=== PATIENT | male | born 1980 | race African-American/Black ===

== ENCOUNTER 2017-07-13 18:46 | Emergency (ER) | payer SELFPAY | END 2017-07-13 19:02 | disposition home or self-care (01) | LOC: ER 18:46 | DX: F15.10 Other stimulant abuse, uncomplicated (principal) | CPT/HCPCS: 99283 ==

== ENCOUNTER 2019-04-22 16:38 | Emergency (ER) | payer SELFPAY ==
[~2019-04-22] VITALS: Ht 180.3 cm; Wt 86.3 kg
[2019-04-22 17:06] VITALS: BP 134/89
[2019-04-22] MEDS ORDERED: LIDOCAINE 1%/EPI 1:100,000 20 ML VIAL. SQ ONE (18:00)
--- NOTE | 2019-04-22 19:03 | PHYS DOC ---
Past Medical History Past Medical History: No Pertinent History (JOSE STANLEY APRN) Past Surgical History: No Surgical History (JOSE STANLEY APRN) Smoking Status: Current Every Day Smoker Alcohol Use: None Drug Use: Phencyclidine (JOSE STANLEY APRN) Attending Signature I have participated in the care of this patient and I have reviewed and agree with all pertinent clinical information above including history, exam, and recommendations. (RANGEL BYNUM MD) Adult General Chief Complaint Chief Complaint: ABSCESS HPI HPI Patient is a 39 year old AA male who presents to the ER with complaints of an a bscess on the right side of his penis and to his left buttock for the last 2 weeks. He states that pus has drained from both sites and that the two areas are very painful to touch. He denies any dysuria, hematuria, or abnormal penile discharge. 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 Pt denies any fever, body aches, fatigue, abdominal pain, nausea, vomiting, or diarrhea. (JOSE STANLEY APRN) Review of Systems Review of Systems All other systems were reviewed and found to be within normal limits, except as documented in this note. (JOSE STANLEY APRN) Current Medications Current Medications Current Medications Medications (Trade) Dose Ordered Sig/Joseph Start Time Stop Time Status Last Admin Dose Admin Lidocaine/ Epinephrine (LIDOCAINE 1%-EPI 1:100,000 Multi-Dose) 20 ml 1X ONCE 04/22/19 18:00 04/22/19 18:01 DC 04/22/19 18:07 20 ML (RANGEL BYNUM MD) Allergies Allergies Allergies Coded Allergies Type Severity Reaction Last Updated Verified No Known Drug Allergies 07/13/17 No (RANGEL BYNUM MD) Physical Exam Physical Exam Constitutional: Well developed, well nourished, no acute distress, non-toxic appearance. [] HENT: Normocephalic, atraumatic, bilateral external ears normal, nose normal. [] Eyes: PERRLA, EOMI, conjunctiva normal, no discharge. [] Neck: Normal range of motion, no stridor. [] Cardiovascular: Heart rate regular rhythm Lungs & Thorax: Respirations even and unlabored, no retractions, no respiratory distress Skin: Warm, dry; 0.5 cm granular area noted to right side of penis, minimal pus drainage, tender to palpation; 2 cm diameter erythemic area noted to center of left buttock with small amount of pus drainage consistent with abscess, tender to palpation Extremities: No cyanosis, ROM intact, no edema. [] Neurologic: Alert and oriented X 3, no focal deficits noted. [] Psychologic: Affect normal, judgement normal, mood normal. [] (JOSE STANLEY APRN) Current Patient Data Vital Signs Vital Signs Date Time Temp Pulse Resp B/P (MAP) Pulse Ox O2 Delivery O2 Flow Rate FiO2 04/22/19 17:06 98.2 94 18 134/89 (104) 97 Room Air 98.2 (RANGEL BYNUM MD) EKG EKG [] (JOSE STANLEY APRN) Radiology/Procedures Radiology/Procedures [] (JOSE STANLEY APRN) Course & Med Decision Making Course & Med Decision Making Pertinent Labs and Imaging studies reviewed. (See chart for details) [] (JOSE STANLEY APRN) Dragon Disclaimer Dragon Disclaimer This electronic medical record was generated, in whole or in part, using a voice recognition dictation system. (JOSE STANLEY APRN) Departure Departure Impression: Primary Impression: Abscess of right buttock Additional Impressions: Cellulitis of right buttock Abscess of shaft of penis Disposition: 01 HOME, SELF-CARE Condition: STABLE Referrals: NO PCP (PCP) Patient Instructions: Abscess, Care After Additional Instructions: Fill the prescription(s) and use as directed. You may take tylenol or ibuprofen as needed for pain. Leave the Dressing that was placed in the ER in place for the next 24 hours, then change the dressing twice daily and apply antibiotic ointment as needed. You may apply warm, moist packs to the area to help decrease discomfort. Follow up with your primary care doctor or return to the ER in 48 hours to have wound rechecked. Return to the ER sooner if your symptoms worsen. Scripts Sulfamethoxazole/Trimethoprim (BACTRIM DS TABLET) 1 Each Tablet 1 TAB PO BID for 10 Days, #20 TAB 0 Refills Prov: JOSE STANLEY APRN 2/19/20 Cephalexin (CEPHALEXIN) 500 Mg Capsule 1 CAP PO QID for 7 Days, #28 CAP 0 Refills Prov: JOSE STANLEY APRN 04/22/19 Incision and Drainage Incision and Drainage : Site: L buttock Blade Size: 11 I & D Procedure: betadine prep, gauze wick placed (1/4" iodoform gauze) Progress The L buttock abscess site was cleansed with betadine and 1% lido with epi was injected for anesthesia. An 11 blade scalpel was inserted into the site and a moderate amount of bloody and thick white drainage was expressed from the left buttock. The area was then packed with 1/4 inch iodoform gauze and covered with a 4x4 and tape. Pt tolerated procedure well, no complications, minimal blood loss. (JOSE STANLEY APRN) Problem Qualifiers JOSE STANLEY APRN Apr 22, 2019 19:03 RANGEL BYNUM MD Apr 23, 2019 00:14
[2019-04-22] MEDS ORDERED: SULF1TAB24 PO (19:06)
[2019-04-22] MEDS ORDERED: CEPH500C PO (19:06)
== END 2019-04-22 19:18 | disposition home or self-care (01) ==
LOC: ER 16:38
DX: L03.317 Cellulitis of buttock (principal); N48.21 Abscess of corpus cavernosum and penis; F17.200 Nicotine dependence, unspecified, uncomplicated
CPT/HCPCS: 10060; 99283; J3490

== ENCOUNTER 2019-07-09 00:19 | Emergency (ER) | payer SELFPAY ==
[~2019-07-09] VITALS: Ht 180.3 cm; Wt 81.0 kg
[~2019-07-09 00:19] MED LIST: CEPH500C PO; SULF1TAB24 PO
[2019-07-09 00:50] VITALS: BP 100/49
[2019-07-09] MEDS ORDERED: LIDOCAINE 2%/EPI 1:100,000 20 ML VIAL. IJ ONE (02:30)
[2019-07-09] MEDS ORDERED: DOXY100C14 PO (02:50)
[2019-07-09] MEDS ORDERED: HYDR-3164 PO (02:50)
--- NOTE | 2019-07-09 02:50 | PHYS DOC ---
Past Medical History Past Medical History: No Pertinent History Past Surgical History: No Surgical History Smoking Status: Current Every Day Smoker Alcohol Use: None Drug Use: Phencyclidine General Adult EDM: Chief Complaint: HIP PAIN HPI: HPI: Patient is a 39 year old male who presents with complaint of painful, swollen area on his left buttock. Patient states that it started a couple of weeks ago and was treated with a course of antibiotics and it had gotten a bit better but states that over the last 2 days, it has gotten a lot worse with increase in swelling. Patient denies any fever. He rates pain as severe. [] Review of Systems: Review of Systems: Constitutional: Denies fever or chills. [] Respiratory: Denies cough or shortness of breath. [] Cardiovascular: Denies chest pain or edema. [] Integument: Positive abscess. [] Neurologic: Denies headache, focal weakness or sensory changes. [] Heart Score: Risk Factors: Risk Factors: DM, Current or recent (<one month) smoker, HTN, HLP, family history of CAD, obesity. Risk Scores: Score 0 - 3: 2.5% MACE over next 6 weeks - Discharge Home Score 4 - 6: 20.3% MACE over next 6 weeks - Admit for Clinical Observation Score 7 - 10: 72.7% MACE over next 6 weeks - Early Invasive Strategies Current Medications: Current Medications Medications (Trade) Dose Ordered Sig/Joseph Start Time Stop Time Status Last Admin Dose Admin Acetaminophen/ Hydrocodone Bitart (Lortab 7.5/325) 1 tab 1X ONCE 07/09/19 03:00 07/09/19 03:01 07/09/19 02:27 1 TAB Cefazolin Sodium (Ancef Im) 1 gm 1X ONCE 07/09/19 03:00 07/09/19 03:01 07/09/19 02:27 1 GM Lidocaine/ Epinephrine (LIDOCAINE 2%-EPI 1:100,000 multi-dose) 20 ml 1X ONCE 07/09/19 02:30 07/09/19 02:31 DC 07/09/19 01:59 20 ML Allergies: Allergies: Allergies Coded Allergies Type Severity Reaction Last Updated Verified No Known Drug Allergies 07/13/17 No Physical Exam: PE: Constitutional: Well developed, well nourished, no acute distress, non-toxic appearance. [] Cardiovascular: Regular rate and rhythm [] Lungs & Thorax: Bilateral breath sounds clear to auscultation [] Skin: Left buttock demonstrates a 4 cm raised, indurated, erythematous, warm and tender lesion with central fluctuance, consistent with abscess. [] Neurologic: Alert and oriented X 3, no focal deficits noted. [] Current Patient Data: Vital Signs: Vital Signs Date Time Temp Pulse Resp B/P (MAP) Pulse Ox O2 Delivery O2 Flow Rate FiO2 07/09/19 02:27 Room Air 07/09/19 00:50 98.4 95 18 100/49 (66) 95 98.4 EKG: EKG: [] Radiology/Procedures: Radiology/Procedures: [] Course & Med Decision Making: Course & Med Decision Making Pertinent Labs and Imaging studies reviewed. (See chart for details) An incision and drainage of abscess was performed utilizing sterile procedure. Area was cleansed with iodine prep. Abscess then anesthetized with 2% lidocaine with epinephrine after which an 11 blade scalpel was utilized to incise the abscess in crisscross pattern. Loculations were broken up with tissue forceps. A moderate amount of purulent drainage was noted from the wound. Wound then packed with 1/2 inch iodoform gauze. Patient tolerated procedure well. [employer] Disclaimer: [employer] Disclaimer: This electronic medical record was generated, in whole or in part, using a voice recognition dictation system. Departure Departure Impression: Primary Impression: Abscess of right buttock Disposition: 01 HOME, SELF-CARE Condition: STABLE Referrals: NO PCP (PCP) Patient Instructions: Abscess Scripts Hydrocodone/Apap 5-325 (NORCO 5-325 TABLET) 1 Each Tablet 1-2 EACH PO PRN Q6HRS PRN for PAIN, #15 as needed for pain Prov: STACEY GORE Jr. DO 07/09/19 Doxycycline Monohydrate (DOXYCYCLINE MONOHYDRATE) 100 Mg Capsule 1 CAP PO BID, #20 CAP Prov: STACEY GORE Jr. DO 07/09/19 STACEY GORE Jr. DO July 09, 2019 02:50
[2019-07-09] MEDS ORDERED: HYDROcodone/APAP 7.5/325MG 1 TAB TABLET PO ONE (03:00)
[2019-07-09] MEDS ORDERED: ceFAZolin IM 1 GM VIAL IM ONE (03:00)
== END 2019-07-09 03:00 | disposition home or self-care (01) ==
LOC: ER 00:19
DX: L02.31 Cutaneous abscess of buttock (principal); F17.200 Nicotine dependence, unspecified, uncomplicated
CPT/HCPCS: 10060; 96372; 99283; J0690; J3490